=== PATIENT | female | born 1990 | race Two or more races ===

== ENCOUNTER 2022-04-01 00:03 | Emergency (ER) | payer OTHER ==
[~2022-04-01] VITALS: Ht 162.6 cm; Wt 149.2 kg
[2022-04-01] MEDS ORDERED: KETO10TA2 PO (05:43)
== END 2022-04-01 05:59 ==
LOC: ER 00:03
DX: R10.2 Pelvic and perineal pain (principal)

== ENCOUNTER 2022-09-27 08:54 | Emergency (ER) | payer OTHER ==
[~2022-09-27] VITALS: Ht 165.1 cm; Wt 145.1 kg
[~2022-09-27 08:54] MED LIST: KETO10TA2 PO
[2022-09-27] MEDS ORDERED: ZITHROMAX500 MG PO (11:21)
[2022-09-27] MEDS ORDERED: ZYRTEC10 M3 PO (11:21)
[2022-09-27] MEDS ORDERED: FLONASE ALLERG9.9 ML NASAL (11:21)
[2022-09-27] MEDS ORDERED: MUCINEX DM ER1 EAC1 PO (11:21)
== END 2022-09-27 11:28 | disposition home or self-care (01) ==
LOC: ER 08:54
DX: J02.9 Acute pharyngitis, unspecified (principal); R05.9 Cough, unspecified; Z20.822 Contact with and (suspected) exposure to COVID-19; R09.3 Abnormal sputum; J34.89 Other specified disorders of nose and nasal sinuses; R53.81 Other malaise; G44.89 Other headache syndrome; R09.81 Nasal congestion